=== PATIENT | female | born 1955 | race African-American/Black ===

== ENCOUNTER 2016-06-12 01:49 | Emergency (ER) | payer OTHER ==
[~2016-06-12] VITALS: Ht 157.5 cm; Wt 49.9 kg
--- NOTE | ~2016-06-12 | EKG ---
[place] [place] [address] ELECTROCARDIOGRAM REPORT Name: DOLLY MEDLEY Room #: DEP [facility]#: [id number] Admission: 06/12/16 Attend Phys: Discharge: 06/12/16 Date of : 57 Report #: [id number] THIS REPORT FOR: //name// [facility] ED Test Date: 2016-06-12 Test Time: 02:44:35 Pat Name: DOLLY MEDLEY Department: Room: Gender: F Pacu Rn: [place] : 1955 Requested By: Ginny Turner Order Number: [id number] MD: Ajith Kaba Measurements Intervals [place] Rate: 74 P: 80 [place]: 186 QRS: 63 QRSD: 87 T: 106 QT: 440 QTc: 489 Interpretive Statements Sinus rhythm Consider left ventricular hypertrophy Nonspecific T abnormalities, lateral leads Borderline prolonged QT interval Compared to ECG 06/08/2016 18:45:28 T-wave abnormality now present Electronically Signed On 06-12-2016 22:35:12 CDT by Ajith Kaba [email or web address] <ELECTRONICALLY SIGNED> By: Ajith Kaba MD 06/12/16 [id number] Ajith Kaba MD /YELITZA
[~2016-06-12 01:49] MED LIST: DIOVAN HCT 1601 EAC1 PO; DIOVAN160 MG PO; HYDROCHLOROTHIA25 M2 PO; LASIX 40 MG TAB40 M2 PO; XANAX 0.5 MG0.5 MG PO
[2016-06-12] MEDS ORDERED: DIOVAN HCT 1601 EAC1 PO (02:41)
== END 2016-06-12 03:02 | disposition home or self-care (01) ==
LOC: ER 01:49
DX: I10 Essential (primary) hypertension (principal); I20.9 Angina pectoris, unspecified; Z91.14 Patient's other noncompliance with medication regimen; Z88.0 Allergy status to penicillin

== ENCOUNTER 2016-06-28 19:31 | Emergency (ER) | payer OTHER ==
[~2016-06-28] VITALS: Ht 157.5 cm; Wt 45.4 kg
--- NOTE | ~2016-06-28 | EKG ---
[place] [address] [facility] [place] [address] ELECTROCARDIOGRAM REPORT Name: JASMYNEDOLLY Zabrina Room #: [facility]#: [id number] Admission: 06/28/16 Attend Phys: Discharge: 06/28/16 Date of : 57 Report #: [id number] THIS REPORT FOR: //name// [facility] ED Test Date: 2016-06-28 Test Time: 19:50:58 Pat Name: DOLLY MEDLEY Department: Room: Gender: F [employer]: KKODJOVI : 1955 Requested By: Anuj Blancas Order Number: [id number] MD: Alli Rich Measurements Intervals [place] Rate: 79 P: 55 DE: 166 QRS: 46 QRSD: 77 T: 69 QT: 409 QTc: 469 Interpretive Statements Sinus rhythm Probable left atrial enlargement Compared to ECG 06/12/2016 02:44:35 T-wave abnormality no longer present Electronically Signed On 06-29-2016 7:48:56 CDT by Alli Rich [email or web address] <ELECTRONICALLY SIGNED> By: Alli Rich MD, [facility] 06/29/16 0748 D: [id number] Alli Rich MD, FACC /EPI
[2016-06-28 20:16] LABS: ABSOLUTE NEUTROPHILS 2.5 thou/uL (1.4-8.2); BASOPHILS 0.7 % (0.0-2.0); EOSINOPHILS 2.5 % (0.0-3.0); HEMATOCRIT 32.3 % (37.0-47.0); HEMOGLOBIN 10.7 gm/dL (12.0-15.0); LYMPHOCYTES 41.8 % (24.0-44.0); MANUAL DIFF NO; MCH 27.9 pg (26.0-34.0); MCHC 33.1 g/dL (28.0-37.0); MCV 84.3 fL (80.0-100.0); MONOCYTES 8.1 % (1.0-8.0); PLATELET COUNT 211 thou/uL (150-400); POLYS 46.9 % (36.0-66.0); RBC 3.83 mil/uL (4.20-5.00); RDW 14.7 % (10.5-14.5); WBC 5.4 thou/uL (4.0-11.0)
[2016-06-28 20:24] LABS: ANION GAP 6 mmol/L (7-16); BUN 17 mg/dL (7-18); CALCIUM 8.7 mg/dL (8.5-10.1); CHLORIDE 107 mmol/L (98-107); CO2 30 mmol/L (21-32); CREATININE 1.1 mg/dL (0.6-1.0); GLUCOSE 101 mg/dL (74-106); SODIUM 143 mmol/L (136-145)
[2016-06-28 20:31] LABS: ALBUMIN 3.3 g/dL (3.4-5.0); ALKALINE PHOSPHATASE 108 U/L (46-116); MAGNESIUM 2.3 mg/dL (1.8-2.4); SGOT 18 U/L (15-37); SGPT 20 U/L (30-65); TOTAL BILIRUBIN 0.3 mg/dL (<0.1-1.0); TOTAL PROTEIN 6.8 g/dL (6.4-8.2); TROPONIN-I < 0.04 ng/mL (<0.04-0.07)
== END 2016-06-28 21:32 | disposition home or self-care (01) ==
LOC: ER 19:31
PROVIDERS: Emergency Medicine
DX: R07.9 Chest pain, unspecified (principal); I10 Essential (primary) hypertension; Z88.0 Allergy status to penicillin; I20.9 Angina pectoris, unspecified

== ENCOUNTER 2017-07-06 13:19 | Emergency (ER) | payer OTHER ==
[~2017-07-06] VITALS: Ht 157.5 cm; Wt 59.0 kg
== END 2017-07-06 14:31 | disposition home or self-care (01) ==
LOC: ER 13:19
DX: I10 Essential (primary) hypertension (principal); R60.0 Localized edema; Z88.0 Allergy status to penicillin